=== PATIENT | male | born 1955 | race Caucasian/White ===

== ENCOUNTER 2019-02-18 08:23 | Inpatient (IN) | payer OTHER ==
[~2019-02-18] VITALS: Ht 182.9 cm; Wt 83.0 kg
[2019-02-18] MEDS ORDERED: OMNIPAQUE 350 MG/ML, 75ML BOTTLE ONE (10:12)
[2019-02-18] MEDS ORDERED: LACTATED RINGERS 1,000 ML IV SCH (10:12)
[2019-02-18] MEDS ORDERED: [UNRECOGNIZED DRUG - REMARK] (10:18)
[2019-02-18 10:19] VITALS: BP 135/84
[2019-02-18] MEDS ORDERED: LABETALOL 5MG/ML, 20ML IV PRN (12:30)
[2019-02-18] MEDS ORDERED: MEPERIDINE/PF 25MG/ML,1ML IVPush PRN (12:30)
[2019-02-18] MEDS ORDERED: hydrALAzine 20 MG/ML, 1ML IV PRN (12:30)
[2019-02-18] MEDS ORDERED: HYDROmorphone 1 MG/ML, 1ML INJ IVPush PRN (12:30)
[2019-02-18] MEDS ORDERED: PROMETHAZINE 25 MG/ML, 1ML IV PRN (12:30)
[2019-02-18] MEDS ORDERED: FENTANYL PF 100 MCG/2ML IV PRN (12:30)
[2019-02-18] MEDS ORDERED: ALBUTEROL/IPRATROPIUM 2.5MG/0.5MG, 3 ML NPPB PRN (12:30)
[2019-02-18] MEDS ORDERED: ALBUTEROL SULFATE 2.5 MG/3 ML NPPB PRN (12:30)
[2019-02-18] MEDS ORDERED: HALOPERIDOL 5 MG/ML IV PRN (12:30)
[2019-02-18] MEDS ORDERED: FENTANYL PF 250 MCG/5ML ONE (12:59)
[2019-02-18] MEDS ORDERED: NEOSTIGMINE 1 MG/ML, 10ML ONE (14:33)
[2019-02-18] MEDS ORDERED: PROPOFOL 10 MG/ML, 20ML ONE (14:33)
[2019-02-18] MEDS ORDERED: CEFAZOLIN 1,000 MG ONE (14:33)
[2019-02-18] MEDS ORDERED: GLYCOPYRROLATE 0.2MG/1ML, 5ML ONE (14:33)
[2019-02-18] MEDS ORDERED: SUCCINYLCHOLINE 20 MG/ML, 10ML ONE (14:33)
[2019-02-18] MEDS ORDERED: DEXAMETHASONE 4 MG/ML, 1ML ONE (14:33)
[2019-02-18] MEDS ORDERED: ROCURONIUM 10MG/ML,5ML ONE (14:33)
[2019-02-18] MEDS ORDERED: ONDANSETRON 2MG/ML, 2ML ONE (14:33)
[2019-02-18] MEDS ORDERED: IBUPROFEN 600 MG TABLET PO PRN (16:30)
[2019-02-18] MEDS ORDERED: LABETALOL 5MG/ML, 20ML IVPush PRN (16:30)
[2019-02-18] MEDS ORDERED: ONDANSETRON ODT 4 MG PO PRN (16:30)
[2019-02-18] MEDS ORDERED: ACETAMINOPHEN 325 MG TABLET PO PRN (16:30)
[2019-02-18] MEDS ORDERED: ENOXAPARIN 40 MG/0.4 ML SQ SCH (16:30)
[2019-02-18 18:09] LABS: CELLS COUNTED 158
[2019-02-18 19:09] VITALS: BP 124/76
[2019-02-18] MEDS ORDERED: FENTANYL PF 100 MCG/2ML ONE (20:37)
[2019-02-18] MEDS ORDERED: LIDOCAINE 1%, 10ML ONE (20:40)
[2019-02-19 00:24] VITALS: BP 112/63
[2019-02-19 04:23] VITALS: BP 113/63
[2019-02-19 07:39] VITALS: BP 120/65
== END 2019-02-19 10:10 | disposition home or self-care (01) | DRG 201 ==
LOC: OUT 08:23 → ORIP 16:03 → 4NE 18:56 → DCLOUNGE 02-19 10:08
PROVIDERS: ADMIT Internal Medicine; ATTEND Internal Medicine
PROC: 0B9C8ZX Drainage of Right Upper Lung Lobe, Via Natural or Artificial Opening Endoscopic, Diagnostic (ICD-10-PCS; 2019-02-18)
PROC: 0BDC8ZX Extraction of Right Upper Lung Lobe, Via Natural or Artificial Opening Endoscopic, Diagnostic (ICD-10-PCS; principal; 2019-02-18 13:00)
DX: J93.9 Pneumothorax, unspecified (principal)
CPT/HCPCS: 31623; 31624; 31629; 71045; 71260; 76000; 87015; 87070; 87102; 87116; 87205; 87206; 88104; 88112; 88172; 88173; 88305; 89051; 93005; G0378; J0690; J1100; J2405; J2704; J2710; J3010; Q9967; J0330